=== PATIENT | female | born 2000 | race Caucasian/White ===

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

== ENCOUNTER 2024-08-26 10:39 | Emergency (ER) | payer MEDICAID ==
[2024-08-26 11:59] VITALS: BP 108/67; PULSE 76
[2024-08-26] MEDS: HYDROmorphone 1 MG/ML Syringe IM ONE (12:15)
== END 2024-08-26 13:02 | disposition home or self-care (01) ==
LOC: JP.ED 10:39
DX: G89.18 Other acute postprocedural pain (principal); K21.9 Gastro-esophageal reflux disease without esophagitis; Z88.6 Allergy status to analgesic agent; Z79.899 Other long term (current) drug therapy
CPT/HCPCS: 72190; 72190-26; 96372; 99283; J1171

== ENCOUNTER 2024-12-05 20:18 | Emergency (ER) | payer MEDICAID ==
[2024-12-05 23:19] VITALS: BP 127/72; PULSE 85
== END 2024-12-05 23:28 | disposition home or self-care (01) ==
LOC: JP.ED 20:18
DX: O26.851 Spotting complicating pregnancy, first trimester (principal); O99.611 Diseases of the digestive system complicating pregnancy, first trimester; K21.9 Gastro-esophageal reflux disease without esophagitis; O99.331 Smoking (tobacco) complicating pregnancy, first trimester; F17.210 Nicotine dependence, cigarettes, uncomplicated; Z79.899 Other long term (current) drug therapy; Z79.01 Long term (current) use of anticoagulants; Z88.5 Allergy status to narcotic agent; Z3A.01 Less than 8 weeks gestation of pregnancy
CPT/HCPCS: 36415; 84702; 99284